=== PATIENT | female | born 1975 | race American Indian/Alaskan Native ===

== ENCOUNTER 2017-08-30 03:55 | Emergency (ER) | payer OTHER, MEDICAID ==
--- NOTE | 2017-08-30 04:20 | EDM.PDOC ---
<Lisa Nails - Last Filed: 08/30/17 07:03> ED HPI GENERAL MEDICAL PROBLEM - General Chief Complaint: Abdominal Pain Stated Complaint: SICK [id number] Time Seen by Provider: 08/30/17 04:19 Source of Information: Reports: Patient History Limitations: Reports: No Limitations - History of Present Illness INITIAL COMMENTS - FREE TEXT/NARRATIVE: Lower left abdominal pain since am, No fever or chills, No vomiting. Started out crampy now constant. No similar previous episodes. Thought some constipation so took Mag Citrate. One stool since. 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(s) - Related Data Allergies Allergy/AdvReac Type Severity Reaction Status Date / Time No Known Allergies Allergy Verified 08/30/17 04:03 Home Meds: Home Meds Atenolol 1 tab PO DAILY 08/07/15 [History] Lisinopril/Hydrochlorothiazide [Lisinopril-Hctz 20-25 mg Tab] 1 tab PO DAILY 05/19 [History] Past Medical History HEENT History: Reports: Impaired Vision, Other (See Below) Other HEENT History: wears contacts and glasses Cardiovascular History: Reports: Hypertension Gastrointestinal History: Reports: Cholelithiasis, Chronic Constipation Genitourinary History: Reports: UTI, Recurrent 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: Psychiatric History: Reports: Anxiety Endocrine/Metabolic History: Reports: Obesity/BMI 30+ Hematologic History: Reports: Blood Transfusion(s) - Infectious Disease History Infectious Disease History: Reports: Chicken Pox - Past Surgical History Female Surgical History: Reports: Section Social & Family History - Family History Family Medical History: Noncontributory - Tobacco Use Smoking Status *Q: Unknown Ever Smoked - Caffeine Use Caffeine Use: Reports: Coffee, Energy Drinks, Soda, Tea - Recreational Drug Use Recreational Drug Use: No - Living Situation & Occupation Living situation: Reports: with Family Review of Systems - Review of Systems Review Of Systems: See Below Constitutional: Reports: No Symptoms Ears: Reports: No Symptoms Nose: Reports: No Symptoms Mouth/Throat: Reports: No Symptoms Respiratory: Reports: No Symptoms Cardiovascular: Reports: No Symptoms GI/Abdominal: Reports: Abdominal Pain, Constipation Genitourinary: Reports: No Symptoms Musculoskeletal: Reports: No Symptoms Skin: Reports: No Symptoms Neurological: Reports: No Symptoms ED EXAM, GENERAL - Physical Exam Exam: See Below Exam Limited By: No Limitations General Appearance: Alert, Mild Distress Eye Exam: Bilateral Eye: EOMI Ears: Normal External Exam Nose: Normal Inspection Throat/Mouth: Normal Inspection Head: Atraumatic, Normocephalic Neck: Normal Inspection Respiratory/Chest: No Respiratory Distress, Lungs Clear, Normal Breath Sounds Cardiovascular: Normal Peripheral Pulses, Regular Rate, Rhythm GI/Abdominal: Tender. No: No Distention, Guarding, Abnormal Bowel Sounds, Hernia, Mass Extremities: Normal Inspection Neurological: Alert, Oriented Psychiatric: Normal Affect Course - Vital Signs Last Recorded V/S: Last Vital Signs Temp 99.0 F 08/30/17 07:30 Pulse 70 08/30/17 07:30 Resp 18 08/30/17 07:30 BP 116/62 08/30/17 07:30 Pulse Ox 96 08/30/17 07:30 - Orders/Labs/Meds Orders: Active Orders 24 hr Category Date Time Status UA W/O MICROSCOPIC [URIN] Stat Lab 08/30/17 04:13 Ordered Labs: Laboratory Tests 08/30/17 08/30/17 08/30/17 Range/Units 04:13 04:20 04:20 WBC 18.3 H (5.0-10.0) 10^3/uL RBC 4.30 (4.2-5.4) 10^6/uL Hgb 11.9 L (12.0-16.0) g/dL Hct 34.9 L (37.0-47.0) % MCV 81.2 (80-100) fL MCH 27.7 (27.0-34.0) pg MCHC 34.1 (33.0-35.0) g/dL Plt Count 383 (150-450) 10^3/uL Neut % (Auto) 71.9 (42.2-75.2) % Lymph % (Auto) 20.4 L (20.5-50.1) % [place] % (Auto) 6.2 (2-8) % Eos % (Auto) 1.3 (1.0-3.0) % Baso % (Auto) 0.2 (0.0-1.0) % Sodium 135 (135-145) mmol/L Potassium 2.8 L (3.6-5.0) mmol/L Chloride 101 (101-111) mmol/L Carbon Dioxide 25.0 (21.0-31.0) mmol/L Anion Gap 11.8 BUN 8 (7-18) mg/dL Creatinine 0.7 (0.6-1.3) mg/dL Est Cr Clr Drug Dosing 92.25 mL/min Estimated GFR (MDRD) > 60 BUN/Creatinine Ratio 11.42 Glucose 104 (74-105) mg/dL Calcium 8.4 (8.4-10.2) mg/dl Total Bilirubin 0.8 (0.2-1.0) mg/dL AST 30 (10-42) IU/L ALT 32 (10-60) IU/L Alkaline Phosphatase 81 (42-121) IU/L Total Protein 7.3 (6.7-8.2) g/dl Albumin 3.7 (3.2-5.5) g/dl Globulin 3.6 Albumin/Globulin Ratio 1.03 Amylase 45 (28-100) U/L Lipase 30 (22-51) U/L HCG, Qual Negative Urine Color Yellow (YELLOW) Urine Appearance Clear (CLEAR) Urine pH 7.5 (5.0-9.0) Ur Specific [place] 1.015 (1.005-1.030) Urine Protein Trace H (NEGATIVE) Urine Glucose (UA) Negative (NEGATIVE) Urine Ketones Negative (NEGATIVE) Urine Occult Blood Negative (NEGATIVE) Urine Nitrite Negative (NEGATIVE) Urine Bilirubin Negative (NEGATIVE) Urine Urobilinogen 0.2 (0.2-1.0) mg/dL Ur Leukocyte Esterase Negative (NEGATIVE) Meds: Medications Discontinued Medications Generic Name Dose Route Start Last Admin Trade Name Freq PRN Reason Stop Dose Admin Potassium Chloride 10 meq/ 100 mls @ 100 mls/hr 08/30/17 05:41 08/30/17 06:16 Premix IV 08/30/17 06:40 100 mls/hr ONETIME ONE Administration Iopamidol 100 ml 08/30/17 05:23 08/30/17 05:54 Isovue-300 (61%) IVPUSH 08/30/17 05:24 100 ml ONETIME ONE Administration Oxycodone/Acetaminophen 1 tab 08/30/17 06:25 08/30/17 06:30 Percocet 325-5 Mg PO 08/30/17 06:26 1 tab ONETIME ONE Administration Potassium Chloride 20 meq 08/30/17 06:19 08/30/17 06:26 Klor-Con 10 PO 08/30/17 06:20 20 meq ONETIME ONE Administration Departure - Departure Disposition: Home, Self-Care 01 Condition: Good Clinical Impression: Diverticulitis - Discharge Information Instructions: Diverticulitis, [id number] Forms: ED Department Discharge Care Plan Goals: cipro 500mg one twice daily for one week Flagyl 500mg one three times daily for on week follow up with primary care 2-3 days if not improving light diet advance slowly <Johanna De Oliveira - Last Filed: 08/30/17 10:54> Departure - Departure Time of Disposition: 07:37
[2017-08-30 04:50] LABS: CHLORIDE,CL 101 mmol/L (101-111); SODIUM,NA 135 mmol/L (135-145)
[2017-08-30] MEDS ORDERED: Iopamidol 612 MG/ML 100 ML Bottle IVPUSH ONE (05:23)
[2017-08-30] MEDS ORDERED: Potassium Chloride 10 MEQ in Premix Bag 1 BAG IV ONE (05:41)
[2017-08-30] MEDS ORDERED: Potassium Chloride 10 MEQ Tab.ER PO ONE (06:19)
[2017-08-30] MEDS ORDERED: Acetaminophen/oxyCODONE 325-5 MG Tab PO ONE (06:25)
[2017-08-30 07:30] VITALS: BP 116/62
== END 2017-08-30 07:38 | disposition home or self-care (01) ==
LOC: DL.ED 03:55
DX: K57.92 Diverticulitis of intestine, part unspecified, without perforation or abscess without bleeding (principal); I10 Essential (primary) hypertension; Z79.899 Other long term (current) drug therapy
CPT/HCPCS: 36415; 74018; 74177; 80053; 81003; 82150; 83690; 84703; 85025; 96365; 99284; A9270; J3480; Q9967

== ENCOUNTER 2018-07-09 22:43 | Emergency (ER) | payer MEDICAID, OTHER ==
--- NOTE | 2018-07-09 23:07 | EDM.PDOC ---
ED HPI GENERAL MEDICAL PROBLEM - General Stated Complaint: FEELING SICK Time Seen by Provider: 07/09/18 22:50 Source of Information: Reports: Patient History Limitations: Reports: No Limitations - History of Present Illness INITIAL COMMENTS - FREE TEXT/NARRATIVE: This 43 yo female patient reports to the ED with left sided abdominal pain. The patient reports her symptoms started 2 days ago, but got much worse today. The patient reports she has taken 1 dose of Citrocel and drank some prune juice hoping her symptoms were due to constipation. After she had a bowel movement, the patient did not have any improvement in her symptoms. The patient reports 4 years ago she was diagnosed with diverticulosis with similar symptoms. The patient has had an appendectomy and a cholecysectomy in the past. Onset Date: 07/07/18 Duration: Constant, Getting Worse Location: Reports: Abdomen (left lower quadrant) Quality: Reports: Ache, Sharp Severity: Moderate Improves with: Reports: None Worsens with: Reports: None Context: Reports: Other Associated Symptoms: Reports: No Other Symptoms Left Lower Abdomen Pain Score (Numeric/FACES): 8 - Related Data Allergies Allergy/AdvReac Type Severity Reaction Status Date / Time No Known Allergies Allergy Verified 08/30/17 04:03 Home Meds: Home Meds Atenolol 1 tab PO DAILY 08/07/15 [History] Lisinopril/Hydrochlorothiazide [Lisinopril-Hctz 20-25 mg Tab] 1 tab PO DAILY 05/19 [History] Past Medical History HEENT History: Reports: Impaired Vision, Other (See Below) Other HEENT History: wears contacts and glasses Cardiovascular History: Reports: Hypertension Gastrointestinal History: Reports: Cholelithiasis, Chronic Constipation Genitourinary History: Reports: UTI, Recurrent 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: Psychiatric History: Reports: Anxiety Endocrine/Metabolic History: Reports: Obesity/BMI 30+ Hematologic History: Reports: Blood Transfusion(s) - Infectious Disease History Infectious Disease History: Reports: Chicken Pox - Past Surgical History Female Surgical History: Reports: Section Social & Family History - Family History Family Medical History: Noncontributory - Caffeine Use Caffeine Use: Reports: Coffee, Energy Drinks, Soda, Tea - Living Situation & Occupation Living situation: Reports: with Family ED ROS GENERAL - Review of Systems Review Of Systems: ROS reveals no pertinent complaints other than HPI. ED EXAM, GI/ABD - Physical Exam Exam: See Below Exam Limited By: No Limitations General Appearance: Alert, WD/WN, Moderate Distress Eyes: Bilateral: Normal Appearance, EOMI Ears: Normal External Exam, Normal Canal, Hearing Grossly Normal, Normal TMs Nose: Normal Inspection, Normal Mucosa, No Blood Throat/Mouth: Normal Inspection, Normal Lips, Normal Teeth, Normal Gums, Normal Oropharynx, Normal Voice, No Airway Compromise Head: Atraumatic, Normocephalic Neck: Normal Inspection, Supple, Non-Tender, Full Range of Motion Respiratory/Chest: No Respiratory Distress, Lungs Clear, Normal Breath Sounds, No Accessory Muscle Use, Chest Non-Tender Cardiovascular: Normal Peripheral Pulses, Regular Rate, Rhythm, No Edema, No Gallop, No JVD, No Murmur, No Rub GI/Abdominal Exam: Normal Bowel Sounds, Soft, No Organomegaly, No Distention, No Abnormal Bruit, No Mass, Pelvis Stable, Tender (left lower quadrant) (Female) Exam: Deferred Rectal (Female) Exam: Deferred Extremities: Normal Inspection, Normal Range of Motion, Non-Tender, Normal Capillary Refill, No Pedal Edema Neurological: Alert Psychiatric: Normal Affect, Normal Mood Skin Exam: Warm, Dry, Intact, Normal Color, No Rash Lymphatic: No Adenopathy Course - Vital Signs Last Recorded V/S: Last Vital Signs Temp 36.2 C 07/09/18 22:45 Pulse 64 07/09/18 22:45 Resp 16 07/09/18 22:45 BP 134/62 07/09/18 22:45 Pulse Ox 100 07/09/18 22:45 - Orders/Labs/Meds Orders: Active Orders 24 hr Category Date Time Status metroNIDAZOLE Med 07/10/18 00:24 Once 500 mg PO ONETIME ONE Labs: Laboratory Tests 07/09/18 07/09/18 07/09/18 Range/Units 23:00 23:00 23:28 WBC 15.5 H (5.0-10.0) 10^3/uL RBC 3.99 L (4.2-5.4) 10^6/uL Hgb 11.2 L (12.0-16.0) g/dL Hct 33.3 L (37.0-47.0) % MCV 83.5 (80-100) fL MCH 28.1 (27.0-34.0) pg MCHC 33.6 (33.0-35.0) g/dL Plt Count 365 (150-450) 10^3/uL Neut % (Auto) 73.4 (42.2-75.2) % Lymph % (Auto) 18.9 L (20.5-50.1) % [place] % (Auto) 6.1 (2-8) % Eos % (Auto) 1.4 (1.0-3.0) % Baso % (Auto) 0.2 (0.0-1.0) % Sodium 134 L (135-145) mmol/L Potassium 3.1 L (3.6-5.0) mmol/L Chloride 102 (101-111) mmol/L Carbon Dioxide 21.0 (21.0-31.0) mmol/L Anion Gap 14.1 BUN 12 (7-18) mg/dL Creatinine 0.6 (0.6-1.3) mg/dL Est Cr Clr Drug Dosing 111.03 mL/min Estimated GFR (MDRD) > 60 BUN/Creatinine Ratio 20.00 Glucose 155 H (74-105) mg/dL Calcium 8.8 (8.4-10.2) mg/dl Total Bilirubin 0.5 (0.2-1.0) mg/dL AST 24 (10-42) IU/L ALT 24 (10-60) IU/L Alkaline Phosphatase 83 (42-121) IU/L Total Protein 7.5 (6.7-8.2) g/dl Albumin 3.6 (3.2-5.5) g/dl Globulin 3.9 Albumin/Globulin Ratio 0.92 Amylase 63 (28-100) U/L Lipase 44 (22-51) U/L Urine Color Yellow (YELLOW) Urine Appearance Clear (CLEAR) Urine pH 6.0 (5.0-9.0) Ur Specific [place] 1.025 (1.005-1.030) Urine Protein 30 H (NEGATIVE) Urine Glucose (UA) 100 H (NEGATIVE) Urine Ketones Negative (NEGATIVE) Urine Occult Blood Trace-lysed H (NEGATIVE) Urine Nitrite Negative (NEGATIVE) Urine Bilirubin Negative (NEGATIVE) Urine Urobilinogen 0.2 (0.2-1.0) mg/dL Ur Leukocyte Esterase Negative (NEGATIVE) Urine RBC 0-5 /HPF Urine WBC 0-5 (0-5/HPF) /HPF Ur Epithelial Cells Few /HPF Urine Bacteria Few (0-FEW/HPF) /HPF Hyaline Casts Occasional H /LPF Urine Mucus Moderate H /LPF Meds: Medications Discontinued Medications Generic Name Dose Route Start Last Admin Trade Name Juan PRN Reason Stop Dose Admin Ciprofloxacin 500 mg 07/10/18 00:24 Ciprofloxacin Hcl PO 07/10/18 00:25 ONETIME ONE Iopamidol 100 ml 07/09/18 23:32 07/09/18 23:55 Isovue-300 (61%) IVPUSH 07/09/18 23:33 98 ml ONETIME ONE Administration Metronidazole 500 mg 07/10/18 00:24 Metronidazole PO 07/10/18 00:25 ONETIME ONE - Radiology Interpretation Free Text/Narrative:: EXAM: CT Abdomen and Pelvis With Contrast EXAM DATE/TIME: 07/09/2018 11:43 PM CLINICAL HISTORY: 43 years old, female; Abdominal pain; Localized; Left lower quadrant (llq); Prior surgery; Surgery date: 6+ months; Surgery type: Cholecystectomy 2011. Appendectomy 1983; Patient HX: Llq pain, wbc 15.5, HX of diverticulitis TECHNIQUE: Imaging protocol: Axial computed tomography images of the abdomen and pelvis with intravenous contrast. Coronal and sagittal reformatted images were created and reviewed. Radiation optimization: All CT scans at this facility use at least one of these dose optimization techniques: automated exposure control; mA and/or kV adjustment per patient size (includes targeted exams where dose is matched to clinical indication); or iterative reconstruction. Contrast material: ISO 300; Contrast volume: 98 ml; Contrast route: RAC 20G; COMPARISON: CT Abdomen Pelvis w Cont 08/30/2017 5:36 AM FINDINGS: ABDOMEN: Liver: Normal. No mass. Gallbladder and bile ducts: Cholecystectomy. Pancreas: Normal. No ductal dilation. Spleen: Normal. No splenomegaly. Adrenals: Normal. No mass. Kidneys and ureters: Normal. No hydronephrosis. Stomach and bowel: Colonic diverticulosis. There is a segment of wall thickening involving the mid descending colon, consistent in appearance with acute diverticulitis. Appendix: Appendectomy. PELVIS: Bladder: Unremarkable as visualized. Reproductive: Unremarkable as visualized. ABDOMEN and PELVIS: Intraperitoneal space: Normal. No free air. No significant fluid collection. Bones/joints: No acute fracture. No dislocation. Soft tissues: Unremarkable. Vasculature: Normal. No abdominal aortic aneurysm. Lymph nodes: Normal. No enlarged lymph nodes. IMPRESSION: Acute diverticulitis involving the mid descending colon. No associated abscess. No free air to suggest perforation. Thank you for allowing us to participate in the care of your patient. Dictated and Authenticated by: Americo Emanuel MD 07/10/2018 12:19 AM Central Time ([place] & [place]) Departure - Departure Time of Disposition: 00:26 Disposition: Home, Self-Care 01 Condition: Fair Clinical Impression: Diverticulitis large intestine Qualifiers: Diverticulitis bleeding: without bleeding Diverticulitis complication: without perforation or abscess Qualified Code(s): K57.32 - Diverticulitis of large intestine without perforation or abscess without bleeding - Discharge Information *PRESCRIPTION DRUG MONITORING PROGRAM REVIEWED*: Not Applicable *COPY OF PRESCRIPTION DRUG MONITORING REPORT IN PATIENT BARBER: Not Applicable Instructions: Diverticulitis, [id number] Forms: ED Department Discharge Care Plan Goals: The patient was advised of the examination, lab and CT results during the visit. The patient was given an oral dose of Cipro and Metronidazole while in the ED. The patient was discharged with a script for Cipro (500 mg) to take 1 by mouth 2 times per day for 10 days and Metronidazole (500 mg) to take 1 by mouth 3 times per day for 10 days. The patient was encouraged to take Tylenol as directed for temporary symptom relief. If the patient has any additional symptoms or concerns, the patient should either visit her primary care facility or return to the emergency department. - My Orders Last 24 Hours: My Active Orders 07/10/18 00:24 metroNIDAZOLE 500 mg PO ONETIME ONE - Assessment/Plan Last 24 Hours: My Active Orders 07/10/18 00:24 metroNIDAZOLE 500 mg PO ONETIME ONE
[2018-07-09 23:20] VITALS: BP 134/62
[2018-07-09 23:31] LABS: ANION GAP 14.1; CHLORIDE,CL 102 mmol/L (101-111); SODIUM,NA 134 mmol/L (135-145)
[2018-07-09] MEDS ORDERED: Iopamidol 612 MG/ML 100 ML Bottle IVPUSH ONE (23:32)
[2018-07-10] MEDS ORDERED: Ciprofloxacin 500 MG Tab PO ONE (00:24)
[2018-07-10] MEDS ORDERED: metroNIDAZOLE 250 MG Tab PO ONE (00:24)
== END 2018-07-10 00:34 | disposition home or self-care (01) ==
LOC: DL.ED 22:43
DX: K57.32 Diverticulitis of large intestine without perforation or abscess without bleeding (principal); I10 Essential (primary) hypertension; E66.9 Obesity, unspecified
CPT/HCPCS: 36415; 74177; 80053; 81001; 82150; 83690; 85025; 99284-25; A9270-GY; Q9967

== ENCOUNTER 2020-11-27 16:13 | Emergency (ER) | payer MEDICAID, OTHER ==
[2020-11-27 16:25] VITALS: BP 148/94; PULSE 84
--- NOTE | 2020-11-27 17:09 | EDM.PDOC ---
Scribed by Meena Moore 11/27/20 [id number] for Johanna De Oliveira NP ED HPI GENERAL MEDICAL PROBLEM - General Chief Complaint: ENT Problem Stated Complaint: SINUS INFECTION Time Seen by Provider: 11/27/20 16:49 Source of Information: Reports: Patient, RN, RN Notes Reviewed History Limitations: Reports: No Limitations - History of Present Illness INITIAL COMMENTS - FREE TEXT/NARRATIVE: Patient is a 45-year-old female who presents to ER with complaint of sinus infection. She began feeling congested in the head on Monday. State most discomfort is maxillary. She has body aches, runny nose, postnasal drip, and cough. No fever, chills or headache. She has had no COVID exposure. Onset: Gradual Duration: Getting Worse Location: Reports: Other (sinuses) Quality: Reports: Ache Severity: Moderate Improves with: Reports: None Worsens with: Reports: None Associated Symptoms: Reports: No Other Symptoms Nose Pain Score (Numeric/FACES): 4 - Related Data Allergies Allergy/AdvReac Type Severity Reaction Status Date / Time No Known Allergies Allergy Verified 11/27/20 16:31 Home Meds: Home Meds Lisinopril/Hydrochlorothiazide [Lisinopril-Hctz 20-25 mg Tab] 1 tab PO DAILY 08/07/15 [History] atenoloL [Atenolol] 1 tab PO DAILY 08/07/15 [History] Past Medical History HEENT History: Reports: Impaired Vision, Other (See Below) Other HEENT History: wears contacts and glasses Cardiovascular History: Reports: Hypertension Respiratory History: Reports: None Gastrointestinal History: Reports: Cholelithiasis, Chronic Constipation Genitourinary History: Reports: UTI, Recurrent 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: Musculoskeletal History: Reports: None Neurological History: Reports: None Psychiatric History: Reports: Anxiety Endocrine/Metabolic History: Reports: Obesity/BMI 30+ Hematologic History: Reports: Blood Transfusion(s) Immunologic History: Reports: None Oncologic (Cancer) History: Reports: None Dermatologic History: Reports: None - Infectious Disease History Infectious Disease History: Reports: Chicken Pox - Past Surgical History Head Surgeries/Procedures: Reports: None GI Surgical History: Reports: Cholecystectomy Female Surgical History: Reports: Section Social & Family History - Family History Family Medical History: No Pertinent Family History - Tobacco Use Tobacco Use Status *Q: Never Tobacco User - Caffeine Use Caffeine Use: Reports: Tea - Recreational Drug Use Recreational Drug Use: No - Living Situation & Occupation Living situation: Reports: with Family ED ROS ENT - Review of Systems Review Of Systems: Comprehensive ROS is negative, except as noted in HPI. ED EXAM, ENT - Physical Exam Exam: See Below Exam Limited By: No Limitations General Appearance: Alert, WD/WN, No Apparent Distress Eye Exam: Bilateral Eye: EOMI, Normal Inspection, PERRL Ears: Normal External Exam, Normal Canal, Hearing Grossly Normal, Normal TMs Nose: Other (maxillary tenderness) Mouth/Throat: Normal Inspection, Normal Gums, Normal Lips, Normal Oropharynx, Normal Teeth Head: Atraumatic, Normocephalic Neck: Lymphadenopathy (L), Lymphadenopathy (R) Respiratory/Chest: No Respiratory Distress, Lungs Clear, Normal Breath Sounds, No Accessory Muscle Use, Chest Non-Tender Cardiovascular: Normal Peripheral Pulses, Regular Rate, Rhythm, No Edema, No Gallop, No JVD, No Murmur, No Rub GI/Abdominal: Normal Bowel Sounds, Soft, Non-Tender, No Organomegaly, No Distention, No Abnormal Bruit, No Mass (Female) Exam: Deferred Rectal (Female) Exam: Deferred Back: Normal Inspection, Full Range of Motion Extremities: Normal Inspection, Normal Range of Motion, Non-Tender, No Pedal Edema, Normal Capillary Refill Neurological: Alert, Oriented, CN II-XII Intact, Normal Cognition, Normal Gait, Normal Reflexes, No Motor/Sensory Deficits Psychiatric: Normal Affect, Normal Mood Skin: Warm, Dry, Intact, Normal Color, No Rash Lymphatic: No Adenopathy Course - Vital Signs Last Recorded V/S: Last Vital Signs Temp 36.2 C 11/27/20 16:24 Pulse 84 11/27/20 16:24 Resp 18 11/27/20 16:24 BP 148/94 H 11/27/20 16:24 Pulse Ox 95 11/27/20 16:24 Departure - Departure Time of Disposition: 16:56 Disposition: Home, Self-Care 01 Condition: Good Clinical Impression: Sinus infection Qualifiers: Sinusitis location: maxillary Chronicity: acute Recurrence: non-recurrent Qualified Code(s): J01.00 - Acute maxillary sinusitis, unspecified - Discharge Information *PRESCRIPTION DRUG MONITORING PROGRAM REVIEWED*: No *COPY OF PRESCRIPTION DRUG MONITORING REPORT IN PATIENT BARBER: No Instructions: Sinusitis, Adult, [id number] Forms: ED Department Discharge Additional Instructions: Rx: Medrol Dosepak, take as directed Rx: Augmentin 875 mg, 1 tablet twice daily x14 days Drink plenty of water Rest Alternate Tylenol and/or ibuprofen as directed for pain/fever Sepsis Event Note (ED) - Evaluation Sepsis Screening Result: No Definite Risk - Focused Exam Vital Signs: Vital Signs Temp Pulse Resp BP Pulse Ox 11/27/20 16:24 36.2 C 84 18 148/94 H 95 I have read and agree with the documentation that has been completed regarding this visit. By signing this record, I attest that the documentation was completed in my physical presence and is an accurate record of the encounter.
== END 2020-11-27 17:05 | disposition home or self-care (01) ==
LOC: DL.ED 16:13
DX: J01.00 Acute maxillary sinusitis, unspecified (principal); I10 Essential (primary) hypertension; E66.9 Obesity, unspecified; Z68.30 Body mass index [BMI] 30.0-30.9, adult; Z79.899 Other long term (current) drug therapy
CPT/HCPCS: 99283

== ENCOUNTER 2020-12-07 19:06 | Emergency (ER) | payer MEDICAID ==
[2020-12-07 21:37] LABS: ANION GAP 10.6 mEq/L (7-13); CHLORIDE,CL 103 mmol/L (98-107); SODIUM,NA 140 mmol/L (136-145)
[2020-12-07] MEDS ORDERED: Iopamidol 612 MG/ML 100 ML Bottle IVPUSH ONE (21:40)
[2020-12-07 23:13] LABS: BENZODIAZEPINE,URINE NEGATIVE (NEGATIVE); MDMA (ECSTASY), URINE NEGATIVE (NEGATIVE); METHADONE,URINE NEGATIVE (NEGATIVE); METHAMPHETAMINES,URINE NEGATIVE (NEGATIVE); OPIATES,URINE NEGATIVE (NEGATIVE)
[2020-12-07 23:14] LABS: AMPHETAMINES,URINE NEGATIVE (NEGATIVE); BARBITURATES,URINE NEGATIVE (NEGATIVE); OXYCODONE,URINE NEGATIVE (NEGATIVE); PHENCYCLIDINE,URINE NEGATIVE (NEGATIVE); TCA,URINE NEGATIVE (NEGATIVE)
--- NOTE | 2020-12-07 23:57 | CT ---
PROCEDURE INFORMATION: Exam: CT Abdomen And Pelvis With Contrast Exam date and time: 12/07/2020 10:23 PM Age: 45 years old Clinical indication: Other: Llq pain; HX diverticulosis; Wbc 14; Prior surgery; Surgery date: 6+ months; Surgery type: Gb, appy TECHNIQUE: Imaging protocol: Computed tomography of the abdomen and pelvis with contrast. Radiation optimization: All CT scans at this facility use at least one of these dose optimization techniques: automated exposure control; mA and/or kV adjustment per patient size (includes targeted exams where dose is matched to clinical indication); or iterative reconstruction. Contrast material: ISOVUE 300; Contrast volume: 75 ml; Contrast route: INTRAVENOUS (IV); COMPARISON: CT Abdomen Pelvis w Cont 07/09/2018 11:43 PM FINDINGS: Lungs: Continued minimal bibasilar dependent atelectasis. Liver: No significant change in the 9 mm mass in the central right lobe of the liver, too small to characterize. No new liver mass. Gallbladder and bile ducts: Cholecystectomy again evident. Still no biliary ductal dilatation. Pancreas: Pancreas still unremarkable. Spleen: Still no splenomegaly. Adrenal glands: Still no adrenal mass. Kidneys and ureters: 1 small area of decreased density still present in the lower right renal cortex, too small to characterize. Apparent interval development of the 2nd small area of decreased density more inferiorly in the right lower renal cortex, also too small to characterize. Shallow cortical scar in the lateral right mid kidney still likely. Still no hydronephrosis or obvious pyelonephritis. Stomach and bowel: Interval disappearance of the descending diverticulitis, but appearance of haziness in the fat around a diverticulum of the proximal sigmoid colon having slight thickening of its wall. Continued moderate sigmoid and descending, mild ascending and minimal transverse colonic diverticulosis. Still no obstruction. Appendix: History of an appendectomy. Intraperitoneal space: Still no free air. Vasculature: Continued minimal atherosclerosis. Still no aortic aneurysm. Continued mild bilateral ovarian and slight bilateral pelvic varices. Lymph nodes: No interval suspicious nodes. Urinary bladder: Unremarkable as visualized. Reproductive: Nabothian cysts in the lower uterus still likely. Interval disappearance or decrease in size of a mass in each ovary. Bones/joints: Continued articulation of a large right L5 transverse process with the sacrum indicating a transitional vertebra. Interval worsening of the increased lumbar lordosis. A few minimal old compression fractures again evident. Continued early degeneration of a few discs. Soft tissues: No acute finding. IMPRESSION: 1. Interval disappearance of the descending diverticulitis and appearance of slight proximal sigmoid diverticulitis. Extensive colonic diverticulosis again evident. Still no free air. 2. No significant change in the subcentimeter liver mass, too small to characterize. 3. Interval disappearance or decrease in size of a mass in each ovary. 4. Continued bilateral ovarian and pelvic varices. Other findings detailed above. COMMENTS: Consistent with the [employer]'s Incidental Findings Committee white paper (J Am Yesica Radiol 2018): Any incidental renal lesion less than 1 cm or classified as too small to characterize, or any incidental cystic renal lesion characterized as simple-appearing, is likely benign. No follow-up imaging is recommended for these lesions per consensus recommendations based on imaging criteria.
[2020-12-08] MEDS ORDERED: Ciprofloxacin 500 MG Tab PO ONE (00:08)
[2020-12-08] MEDS ORDERED: metroNIDAZOLE 250 MG Tab PO ONE (00:08)
--- NOTE | 2020-12-08 00:14 | EDM.PDOC ---
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 The patient reports her pain began abruptly approximately 4 hours prior to her arrival to this facility. She characterizes the pain as a waxing and waning burning, 2/10 to 7/10, which radiates across the abdomen; she currently rates her pain at a 2. She denies recent illness, fever, shaking chills, vomiting, diarrhea, constipation, vaginal discharge, dysuria, or hematuria. She has taken no medications of performed any supportive cares for her symptoms. Her last meal was today at noon. Her last bowel movement was this morning and was normal in consistency for her. She denies tobacco, alcohol, or recreational drug use. 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 - Related Data Allergies Allergy/AdvReac Type Severity Reaction Status Date / Time No Known Allergies Allergy Verified 11/27/20 16:31 Home Meds: Home Meds Lisinopril/Hydrochlorothiazide [Lisinopril-Hctz 20-25 mg Tab] 1 tab PO DAILY 08/07/15 [History] atenoloL [Atenolol] 1 tab PO DAILY 08/07/15 [History] Past Medical History HEENT History: Reports: Impaired Vision, Other (See Below) Other HEENT History: wears contacts and glasses Cardiovascular History: Reports: Hypertension Respiratory History: Reports: None Gastrointestinal History: Reports: Cholelithiasis, Chronic Constipation Genitourinary History: Reports: UTI, Recurrent 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: Musculoskeletal History: Reports: None Neurological History: Reports: None Psychiatric History: Reports: Anxiety Endocrine/Metabolic History: Reports: Obesity/BMI 30+ Hematologic History: Reports: Blood Transfusion(s) Immunologic History: Reports: None Oncologic (Cancer) History: Reports: None Dermatologic History: Reports: None - Infectious Disease History Infectious Disease History: Reports: Chicken Pox - Past Surgical History Head Surgeries/Procedures: Reports: None GI Surgical History: Reports: Cholecystectomy Female Surgical History: Reports: Section Social & Family History - Family History Family Medical History: No Pertinent Family History - Tobacco Use Tobacco Use Status *Q: Never Tobacco User Second Hand Smoke Exposure: No - Caffeine Use Caffeine Use: Reports: Tea - Recreational Drug Use Recreational Drug Use: No - Living Situation & Occupation Living situation: Reports: with Family ED ROS GENERAL - Review of Systems Review Of Systems: Comprehensive ROS is negative, except as noted in HPI. ED EXAM, GI/ABD - Physical Exam Exam: See Below Exam Limited By: No Limitations General Appearance: Alert, No Apparent Distress. No: Active Emesis Eyes: Bilateral: Normal Appearance, EOMI Nose: Normal Inspection, Normal Mucosa, No Blood Throat/Mouth: Normal Inspection, Normal Oropharynx, Normal Voice, No Airway Compromise Head: Atraumatic, Normocephalic Neck: Normal Inspection, Full Range of Motion Respiratory/Chest: No Respiratory Distress, Lungs Clear, Normal Breath Sounds, No Accessory Muscle Use, Chest Non-Tender Cardiovascular: Normal Peripheral Pulses, Regular Rate, Rhythm, No Gallop, No Murmur, No Rub GI/Abdominal Exam: Soft, No Distention, No Abnormal Bruit, No Mass, Pelvis Stable, Tender (To palpation of LLQ), Abnormal Bowel Sounds (Hypoactive). No: Guarding, Rigid, Rebound (Female) Exam: Deferred Rectal (Female) Exam: Deferred Back Exam: Normal Inspection, Full Range of Motion. No: CVA Tenderness (L), CVA Tenderness (R) Extremities: Normal Inspection, Normal Range of Motion, Non-Tender, Normal Capillary Refill Neurological: Alert, Oriented, CN II-XII Intact, Normal Cognition, Normal Gait, No Motor/Sensory Deficits Psychiatric: Normal Affect, Normal Mood Skin Exam: Warm, Dry, Intact, Normal Color, No Rash. No: Cyanosis, Jaundice, Mottled, Pallor Lymphatic: No Adenopathy Course - Vital Signs Last Recorded V/S: Last Vital Signs Temp 98 F 12/08/20 00:32 Pulse 51 L 12/08/20 00:32 Resp 18 12/08/20 00:32 BP 137/84 12/08/20 00:32 Pulse Ox 99 12/08/20 00:32 - Orders/Labs/Meds Labs: Laboratory Tests 12/07/20 12/07/20 12/07/20 Range/Units 21:15 21:15 21:15 WBC 14.3 H (5.0-10.0) 10^3/uL RBC 3.96 L (4.2-5.4) 10^6/uL Hgb 11.4 L (12.0-16.0) g/dL Hct 33.6 L (37.0-47.0) % MCV 84.8 (80-100) fL MCH 28.8 (27.0-34.0) pg MCHC 33.9 (33.0-35.0) g/dL Plt Count 306 (150-450) 10^3/uL Neut % (Auto) 77.6 H (42.2-75.2) % Lymph % (Auto) 14.9 L (20.5-50.1) % [place] % (Auto) 6.2 (2-8) % Eos % (Auto) 1.1 (1.0-3.0) % Baso % (Auto) 0.2 (0.0-1.0) % Sodium 140 (136-145) mmol/L Potassium 3.6 (3.5-5.1) mmol/L Chloride 103 (98-107) mmol/L Carbon Dioxide 30 (21-32) mmol/L Anion Gap 10.6 (7-13) mEq/L BUN 19 H (7-18) mg/dL Creatinine 0.92 (0.55-1.02) mg/dL Est Cr Clr Drug Dosing 68.09 mL/min Estimated GFR (MDRD) > 60 BUN/Creatinine Ratio 20.7 (No establ ref range) Glucose 128 H (70-99) mg/dL Lactic Acid 1.2 (0.4-2.0) mmol/L Calcium 9.1 (8.5-10.1) mg/dL Total Bilirubin 0.7 (0.2-1.0) mg/dL AST 21 (15-37) U/L ALT 27 (14-59) U/L Alkaline Phosphatase 98 (46-116) U/L C-Reactive Protein 1.7 H (0.0-0.9) mg/dL Total Protein 7.7 (6.4-8.2) g/dL Albumin 3.7 (3.4-5.0) g/dL Globulin 4.0 Albumin/Globulin Ratio 0.9 HCG, Qual Negative Urine Color (YELLOW) Urine Appearance (CLEAR) Urine pH (5.0-9.0) Ur Specific [place] (1.005-1.030) Urine Protein (NEGATIVE) Urine Glucose (UA) (NEGATIVE) Urine Ketones (NEGATIVE) Urine Occult Blood (NEGATIVE) Urine Nitrite (NEGATIVE) Urine Bilirubin (NEGATIVE) Urine Urobilinogen (0.2-1.0) mg/dL Ur Leukocyte Esterase (NEGATIVE) Urine RBC (0-5) /HPF Urine WBC (0-5/HPF) /HPF Ur Epithelial Cells (NOT SEEN) /HPF Amorphous Sediment (NOT SEEN) /HPF Urine Bacteria (0-FEW/HPF) /HPF Urine Opiates Screen (NEGATIVE) Ur Oxycodone Screen (NEGATIVE) Urine Methadone Screen (NEGATIVE) Ur Barbiturates Screen (NEGATIVE) U Tricyclic Antidepress (NEGATIVE) Ur Phencyclidine Scrn (NEGATIVE) Ur Amphetamine Screen (NEGATIVE) U Methamphetamines Scrn (NEGATIVE) Urine MDMA Screen (NEGATIVE) U Benzodiazepines Scrn (NEGATIVE) Urine Cocaine Screen (NEGATIVE) U Marijuana (THC) Screen (NEGATIVE) Ethyl Alcohol < 3 (0) mg/dL 12/07/20 12/07/20 Range/Units 23:00 23:00 WBC (5.0-10.0) 10^3/uL RBC (4.2-5.4) 10^6/uL Hgb (12.0-16.0) g/dL Hct (37.0-47.0) % MCV (80-100) fL MCH (27.0-34.0) pg MCHC (33.0-35.0) g/dL Plt Count (150-450) 10^3/uL Neut % (Auto) (42.2-75.2) % Lymph % (Auto) (20.5-50.1) % [place] % (Auto) (2-8) % Eos % (Auto) (1.0-3.0) % Baso % (Auto) (0.0-1.0) % Sodium (136-145) mmol/L Potassium (3.5-5.1) mmol/L Chloride (98-107) mmol/L Carbon Dioxide (21-32) mmol/L Anion Gap (7-13) mEq/L BUN (7-18) mg/dL Creatinine (0.55-1.02) mg/dL Est Cr Clr Drug Dosing mL/min Estimated GFR (MDRD) BUN/Creatinine Ratio (No establ ref range) Glucose (70-99) mg/dL Lactic Acid (0.4-2.0) mmol/L Calcium (8.5-10.1) mg/dL Total Bilirubin (0.2-1.0) mg/dL AST (15-37) U/L ALT (14-59) U/L Alkaline Phosphatase (46-116) U/L C-Reactive Protein (0.0-0.9) mg/dL Total Protein (6.4-8.2) g/dL Albumin (3.4-5.0) g/dL Globulin Albumin/Globulin Ratio HCG, Qual Urine Color Yellow (YELLOW) Urine Appearance Clear (CLEAR) Urine pH 8.5 (5.0-9.0) Ur Specific [place] 1.020 (1.005-1.030) Urine Protein Negative (NEGATIVE) Urine Glucose (UA) Negative (NEGATIVE) Urine Ketones Negative (NEGATIVE) Urine Occult Blood Trace-intact H (NEGATIVE) Urine Nitrite Negative (NEGATIVE) Urine Bilirubin Negative (NEGATIVE) Urine Urobilinogen 0.2 (0.2-1.0) mg/dL Ur Leukocyte Esterase Negative (NEGATIVE) Urine RBC Not seen (0-5) /HPF Urine WBC Not seen (0-5/HPF) /HPF Ur Epithelial Cells Rare (NOT SEEN) /HPF Amorphous Sediment Few (NOT SEEN) /HPF Urine Bacteria Rare (0-FEW/HPF) /HPF Urine Opiates Screen Negative (NEGATIVE) Ur Oxycodone Screen Negative (NEGATIVE) Urine Methadone Screen Negative (NEGATIVE) Ur Barbiturates Screen Negative (NEGATIVE) U Tricyclic Antidepress Negative (NEGATIVE) Ur Phencyclidine Scrn Negative (NEGATIVE) Ur Amphetamine Screen Negative (NEGATIVE) U Methamphetamines Scrn Negative (NEGATIVE) Urine MDMA Screen Negative (NEGATIVE) U Benzodiazepines Scrn Negative (NEGATIVE) Urine Cocaine Screen Negative (NEGATIVE) U Marijuana (THC) Screen Negative (NEGATIVE) Ethyl Alcohol (0) mg/dL Meds: Medications Discontinued Medications Generic Name Dose Route Start Last Admin Trade Name Freq PRN Reason Stop Dose Admin Ciprofloxacin 500 mg 12/08/20 00:08 12/08/20 00:24 Ciprofloxacin 500 Mg Tab PO 12/08/20 00:09 500 mg ONETIME ONE Administration Iopamidol 100 ml 12/07/20 21:40 12/07/20 22:34 Iopamidol 612 Mg/Ml 100 Ml Bottle IVPUSH 12/07/20 21:41 75 ml ONETIME ONE Administration Metronidazole 500 mg 12/08/20 00:08 12/08/20 00:24 Metronidazole 250 Mg Tab PO 12/08/20 00:09 500 mg ONETIME ONE Administration - Re-Assessments/Exams Free Text/Narrative Re-Assessment/Exam: 12/07/20 CT abdomen/pelvis obtained Findings of examination, imaging and lab work reviewed with patient. Will treat diverticulitis with metronidazole and ciprofloxacin. Supportive cares for abdominal pain and diet discussed. Patient instructed to follow up with PCP regarding today's visit. Red flag signs and symptoms which would warrant immediate reevaluation reviewed. Patient verbalized understanding and agreement with the plan of care. Departure - Departure Time of Disposition: 00:14 Disposition: Home, Self-Care 01 Condition: Good Clinical Impression: Diverticulitis - Discharge Information *PRESCRIPTION DRUG MONITORING PROGRAM REVIEWED*: Not Applicable *COPY OF PRESCRIPTION DRUG MONITORING REPORT IN PATIENT BARBER: Not Applicable Instructions: Diverticulitis Forms: ED Department Discharge Additional Instructions: Rx: metronidazole Rx: ciprofloxacin 1.) Take all of your antibiotics until gone, even as symptoms improve. 2.) Eat a bland, easily digestible diet. Avoid spicy, greasy, high-fat foods while experiencing abdominal pain. 3.) Take your medications with food and consider eating a yogurt daily while taking antibiotics. 4.) Drink plenty of water to stay hydrated. 5.) Follow up with your primary care provider in 7-10 days. 6.) Follow up with your primary care provider, or return to the emergency department, with any persistent or worsening symptoms despite medications. Sepsis Event Note (ED) - Evaluation Sepsis Screening Result: No Definite Risk - Focused Exam Vital Signs: Vital Signs Temp Pulse Resp BP Pulse Ox 12/08/20 00:32 98 F 51 L 18 137/84 99 12/07/20 20:13 97.8 F 57 L 16 134/83 98
[2020-12-08 00:37] VITALS: BP 137/84; PULSE 51
== END 2020-12-08 00:38 | disposition home or self-care (01) ==
LOC: DL.ED 19:06
DX: K57.32 Diverticulitis of large intestine without perforation or abscess without bleeding (principal); I10 Essential (primary) hypertension; E66.9 Obesity, unspecified; Z68.31 Body mass index [BMI] 31.0-31.9, adult; Z90.49 Acquired absence of other specified parts of digestive tract; Z79.899 Other long term (current) drug therapy
CPT/HCPCS: 36415; 74177; 80053; 80305-QW; 80307; 81001; 83605; 84703; 85025; 86140; 99284-25; A9270-GY; Q9967